=== PATIENT | female | born 1990 | race African-American/Black ===

== ENCOUNTER 2022-05-06 08:02 | Emergency (ER) | payer OTHER ==
[2022-05-06 08:23] VITALS: BP 119/77; PULSE 77; RESP 17; TEMP 98.8; BMI 23.8
[2022-05-06 09:04] LABS: URINE APPEARANCE CLOUDY; URINE BILIRUBIN NEGATIVE (NEGATIVE); URINE COLOR YELLOW; URINE GLUCOSE (UA) NEGATIVE (NEGATIVE); URINE KETONE NEGATIVE (NEGATIVE); URINE LEUK ESTERASE NEGATIVE (NEGATIVE); URINE NITRITE NEGATIVE (NEGATIVE); URINE PROTEIN NEGATIVE (NEGATIVE); URINE UROBILINOGEN 0.2 mg/dL (0.2-1.0)
== END 2022-05-06 12:28 | disposition home or self-care (01) ==
LOC: JER 08:02
DX: O26.891 Other specified pregnancy related conditions, first trimester (principal); R10.9 Unspecified abdominal pain; Z3A.11 11 weeks gestation of pregnancy
CPT/HCPCS: 76801-TC; 81003; 84703; 87086; 99284-25